=== PATIENT | male | born 1995 | race Caucasian/White ===

== ENCOUNTER 2022-05-24 13:37 | Emergency (ER) | payer OTHER ==
[~2022-05-24] VITALS: Ht 167.6 cm; Wt 70.3 kg
== END 2022-05-24 16:17 | disposition home or self-care (01) ==
LOC: ER 13:37
DX: S43.014A Anterior dislocation of right humerus, initial encounter (principal); S43.034A Inferior dislocation of right humerus, initial encounter; W17.89XA Other fall from one level to another, initial encounter
CPT/HCPCS: 36415; 73020; 73030; A9270; J3010

== ENCOUNTER → 2023-04-09 | Outpatient (CLI) | payer OTHER | END | disposition home or self-care (01) | LOC: PLD 11:31 → LAB SHORT 11:31 | DX: L30.8 Other specified dermatitis (principal) | CPT/HCPCS: 88305; 88312 ==